=== PATIENT | female | born 1965 | race Caucasian/White ===

== ENCOUNTER 2021-01-08 05:34 | Day surgery (SDC) | payer BC ==
[2021-01-08] MEDS ORDERED: Lactated Ringers 1,000 ML IV SCH (06:00)
[2021-01-08] MEDS ORDERED: Nozin Nasal Sanitizer NASBOTH ONE (06:30)
[2021-01-08] MEDS ORDERED: Bupivacaine 0.5% 50 ML MDV ONE (07:09)
[2021-01-08] MEDS ORDERED: fentaNYL 100 MCG/2 ML SDV ONE (07:30)
[2021-01-08] MEDS ORDERED: Midazolam 1 MG/ML 2 ML SDV ONE (07:30)
[2021-01-08] MEDS ORDERED: Clindamycin Phosphate 900 MG in Sodium Chloride 0.9% 100 ML IV ONE (07:30)
[2021-01-08] MEDS ORDERED: Propofol 200 MG/20 ML SDV ONE (07:30)
[2021-01-08] MEDS ORDERED: Lidocaine 0.5% 50 ML SDV ONE (07:31)
[2021-01-08] MEDS ORDERED: Ketorolac 30 MG/ML SDV ONE (07:58)
[2021-01-08] MEDS ORDERED: Bupivacaine 0.5%/EPINEPHrine 1:200,000 30 ML SDV INJECT ONE (08:25)
[2021-01-08] MEDS ORDERED: traMADol 50 MG Tab PO ONE (09:40)
[2021-01-08] MEDS ORDERED: fentaNYL 100 MCG/2 ML SDV IVPUSH ONE (09:45)
--- NOTE | 2021-01-15 22:02 | OR ---
DATE OF PROCEDURE: 01/08/2021 SURGEON: Massimo Wei MD PREOPERATIVE DIAGNOSES: 1. Left carpal tunnel syndrome. 2. Stenosing tenosynovitis, left ring finger. 3. Stenosing tenosynovitis, right ring finger. PROCEDURES: 1. Left carpal tunnel release. 2. A1 jason release, left ring finger. 3. A1 jason release, right ring finger. [employer]: PEDRO Gutierres ANESTHESIA: Hartly block, left upper extremity; local infiltration, right ring finger; and conscious sedation. INDICATIONS: María Marte is a 55-year-old female with a history of both ring fingers catching and locking, which has been getting progressively worse over the past several weeks. She also has a history of progressive tingling and numbness in the left hand median nerve distribution. She has difficulty with reconnaissance man strength and fine manipulation. Examination and symptoms are consistent with left carpal tunnel syndrome, and she has obvious triggering of both ring fingers. She now presents for left carpal tunnel release and release of A1 jason of both right and left ring fingers. Risks, benefits, and potential complications were discussed, including doing left and right hands separately or concurrently. DESCRIPTION OF PROCEDURE: After administration of a Christine block to the left hand, the left hand was prepped and draped in sterile fashion. A longitudinal incision was made in the palm distal to the wrist crease in line with the 3rd and 4th interspaces. This was carried down through the subcutaneous tissues and the palmar fascia. The transverse carpal ligament was divided under direct visualization. This was fairly thick and did show some indentation on the median nerve beneath it. The ligament was released proximally and distally. The contents of the carpal tunnels were inspected, revealing no space-occupying masses. Some mild adherent synovium was present, which was released. Confirmation of release was done both visually and by palpation. The wound was then irrigated. Attention was turned to the ring finger. A small transverse incision was made in the distal flexion crease overlying the 4th finger metacarpal. This was carried down through the subcutaneous tissues and blunt dissection carried down to the flexor tendons. Retractors were placed, protecting the digital nerves, and the A1 jason was then released under direct visualization. The jason was released proximally and distally. The contents of the jason were inspected with no obvious tendinopathy or tears of the flexor tendons. Both wounds were irrigated. The incisions were closed with 3-0 nylon in an interrupted mattress fashion. Skin edges were infiltrated with 0.5% Marcaine, and a sterile dressing was applied. The right hand was prepped and draped in a sterile fashion. 0.5% Marcaine was injected directly over the 4th metacarpal in line with the distal flexion crease in the palm. A transverse incision was made and carried down through the tissue in a blunt fashion, exposing the flexor tendons. The A1 jason was released under direct visualization. The flexor tendon was inspected with no evidence of tendinopathy or other abnormality. The wound was irrigated and closed with 3-0 nylon in an interrupted mattress fashion. A small dressing was applied. The patient tolerated the procedures well, there were no complications, and was taken from the operating room in stable condition. Massimo Wei MD /[id number]
== END 2021-01-08 10:00 | disposition home or self-care (01) ==
LOC: JP.SDS 05:34
PROVIDERS: ATTEND Specialist
DX: G56.02 Carpal tunnel syndrome, left upper limb (principal); M65.842 Other synovitis and tenosynovitis, left hand; M65.841 Other synovitis and tenosynovitis, right hand; E78.5 Hyperlipidemia, unspecified; Z88.2 Allergy status to sulfonamides; Z88.0 Allergy status to penicillin
CPT/HCPCS: 26055; 36415; 64721; 80053; 85025; A9270; J1885; J2250; J2704; J3490; J7120; J3010